=== PATIENT | female | born 1970 | race Caucasian/White ===

== ENCOUNTER 2025-02-28 08:24 | Day surgery (SDC) | payer MEDICAID ==
[2025-02-28] MEDS ORDERED: Lidocaine 2% 100 MG/5 ML Syringe IVPUSH ONE (08:25)
[2025-02-28] MEDS ORDERED: Ketamine 500 mg/10 ML MDV IV ONE (08:25)
[2025-02-28] MEDS ORDERED: Midazolam 1 MG/ML 2 ML SDV IV ONE (08:25)
[2025-02-28] MEDS ORDERED: Propofol 200 MG/20 ML SDV IV ONE (08:25)
[2025-02-28] MEDS ORDERED: Sodium Chloride 0.9% 10 ML Syringe FLUSH PRN (08:51)
[2025-02-28] MEDS: Lactated Ringers 1,000 ML IV SCH (09:25)
[2025-02-28] MEDS: Simethicone Drops 40 MG/0.6 ML 30 ML Bottle ONE (11:16)
== END 2025-02-28 12:52 | disposition home or self-care (01) ==
LOC: FB.SDS 08:24
PROVIDERS: ATTEND Surgery
DX: Z12.11 Encounter for screening for malignant neoplasm of colon (principal); K57.30 Diverticulosis of large intestine without perforation or abscess without bleeding; Z86.0101 Personal history of adenomatous and serrated colon polyps; F32.A Depression, unspecified; E78.5 Hyperlipidemia, unspecified
CPT/HCPCS: A9270; G0105; J2250; J2704; J3490; J7120; 00811